=== PATIENT | female | born 1950 | race Caucasian/White ===

== ENCOUNTER → 2021-05-01 14:20 | Outpatient (CLI) | payer MEDICARE, OTHER, SELFPAY ==
[2021-05-01 16:20] LABS: Hemoglobin A1C% w Est Avg Glu 5.9 % (4.0-6.0)
[2021-05-01 18:22] LABS: Microalbumi Creatinin Ratio Ur 88.4 ug/mg CR (<30); Microalbumin Urine Random 6.1 mg/dL (0-1.6)
== END ==
PROVIDERS: PCP Student in an Organized Health Care Education/Training Program; Referring Provider Student in an Organized Health Care Education/Training Program; Visit Provider Student in an Organized Health Care Education/Training Program
DX: E11.9 Type 2 diabetes mellitus without complications (principal)
CPT/HCPCS: 36415; 82043; 82570; 83036